=== PATIENT | male | born 1985 ===

== ENCOUNTER 2017-04-18 11:59 | Emergency (ER) | payer OTHER ==
[2017-04-18 12:08] VITALS: O2SAT 99
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
[2017-04-18] MEDS ORDERED: Tetanus/Diphtheria Toxoids 0.5 ml Syringe IM ONE ×2 (12:43→13:20)
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
[2017-04-18 14:34] VITALS: BP 144/95; PULSE 95; RESP 20; TEMP 98.6
== END 2017-04-18 14:34 | disposition home or self-care (01) ==
LOC: C.ER 11:59
DX: F07.81 Postconcussional syndrome (principal); S80.212A Abrasion, left knee, initial encounter; S80.211A Abrasion, right knee, initial encounter; S00.81XA Abrasion of other part of head, initial encounter; S40.812A Abrasion of left upper arm, initial encounter; S40.811A Abrasion of right upper arm, initial encounter; V29.9XXA Motorcycle rider (driver) (passenger) injured in unspecified traffic accident, initial encounter; Z23 Encounter for immunization